=== PATIENT | male | born 1950 | race African-American/Black ===

== ENCOUNTER 2022-02-26 18:05 | Emergency (ER) | payer MEDICARE, OTHER ==
[~2022-02-26] VITALS: Ht 170.2 cm; Wt 83.0 kg
[2022-02-26 18:08] VITALS: BP 143/107
--- NOTE | 2022-02-26 19:34 | NUR ---
PT CALLED IN LOBBY AND OUTSIDE, NO ANSWER. PT LWBS
== END 2022-02-26 19:34 | disposition left against medical advice (07) ==
LOC: MED 18:05
DX: R11.0 Nausea (principal); Z53.21 Procedure and treatment not carried out due to patient leaving prior to being seen by health care provider